=== PATIENT | female | born 1950 | race Caucasian/White ===

== ENCOUNTER 2023-11-21 13:40 | Emergency (ER) | payer MEDICARE ==
[~2023-11-21] VITALS: Ht 162.6 cm; Wt 71.7 kg
[~2023-11-21 13:40] MED LIST: ASCO500C6 PO; ASPI-556 PO; CALC-190 PO; DOCU-116 PO; FISH1CAP17 PO; HYDR12.530 PO; LACT1CAP78 PO; MULT-1192 PO; NABU-141 PO; POLY17PO4 PO; TRAZ150T79 PO; UBID50TA3 PO; VITA-348 PO
[2023-11-21 13:46] VITALS: BP 129/75; PULSE 64; RESP 16
[2023-11-21] MEDS ORDERED: IBUP-2070 PO (16:41)
== END 2023-11-21 18:08 | disposition home or self-care (01) ==
LOC: EDH 13:40
DX: S92.302A Fracture of unspecified metatarsal bone(s), left foot, initial encounter for closed fracture (principal); I10 Essential (primary) hypertension; Z79.1 Long term (current) use of non-steroidal anti-inflammatories (NSAID); Z79.82 Long term (current) use of aspirin; Z79.899 Other long term (current) drug therapy; Z85.3 Personal history of malignant neoplasm of breast; Z90.49 Acquired absence of other specified parts of digestive tract; Z90.710 Acquired absence of both cervix and uterus; W18.39XA Other fall on same level, initial encounter; Y93.89 Activity, other specified; Y92.89 Other specified places as the place of occurrence of the external cause; Y99.8 Other external cause status
CPT/HCPCS: 29515; 73630; 73660